=== PATIENT | female | born 1995 | race Caucasian/White ===

== ENCOUNTER 2020-07-19 06:53 | Day surgery (SDC) | payer OTHER ==
[~2020-07-19] VITALS: Ht 167.6 cm; Wt 97.5 kg
[2020-07-19 07:00] VITALS: BP 127/75
[2020-07-19 12:46] VITALS: BP 117/65
== END 2020-07-19 12:30 | disposition home or self-care (01) ==
LOC: DS 06:53 → OR 07:30 → DS 12:30
PROVIDERS: ATTEND Obstetrics & Gynecology
DX: Z30.2 Encounter for sterilization (principal); J45.909 Unspecified asthma, uncomplicated; Z20.822 Contact with and (suspected) exposure to COVID-19
CPT/HCPCS: J0131; J0690; J1170; J2250; J2405; J3010; J3490; U0003